=== PATIENT | female | born 1950 | race Caucasian/White ===

== ENCOUNTER 2020-06-07 15:03 | Emergency (ER) | payer OTHER ==
[~2020-06-07] VITALS: Ht 154.9 cm; Wt 59.9 kg
[~2020-06-07 15:03] MED LIST: ATACAND4 MG; CIPRO500 MG PO; FLAGYL500MG PO; INTESTINEX1 CA1 PO
[2020-06-07] MEDS ORDERED: LEVOXYL25 MCG (15:20)
== END 2020-06-07 16:17 | disposition home or self-care (01) ==
LOC: ER 15:03
DX: G51.0 Bell's palsy (principal)

== ENCOUNTER 2023-05-06 08:54 | Emergency (ER) | payer OTHER ==
[~2023-05-06] VITALS: Ht 154.9 cm; Wt 67.1 kg
[~2023-05-06 08:54] MED LIST changes: +LEVOXYL25 MCG
[2023-05-06] MEDS ORDERED: CLONAZEPAM1 MG (09:12)
== END 2023-05-06 12:34 ==
LOC: ER 08:54
DX: J10.1 Influenza due to other identified influenza virus with other respiratory manifestations (principal); I10 Essential (primary) hypertension; J32.8 Other chronic sinusitis; Z88.6 Allergy status to analgesic agent; Z91.013 Allergy to seafood; F41.8 Other specified anxiety disorders; Z20.822 Contact with and (suspected) exposure to COVID-19

== ENCOUNTER 2024-11-24 10:01 | Emergency (ER) | payer OTHER ==
[~2024-11-24] VITALS: Ht 156.2 cm; Wt 65.8 kg
[~2024-11-24 10:01] MED LIST changes: +CLONAZEPAM1 MG
== END 2024-11-24 12:35 | disposition home or self-care (01) ==
LOC: ER 10:03
DX: H11.32 Conjunctival hemorrhage, left eye (principal); Z88.0 Allergy status to penicillin; Z88.2 Allergy status to sulfonamides; Z91.013 Allergy to seafood